=== PATIENT | male | born 1995 | race Caucasian/White ===

== ENCOUNTER 2025-01-10 12:46 | Emergency (ER) | payer MEDICAID, SELFPAY ==
--- NOTE | ~2025-01-10 | XR_ITS ---
EXAMINATION: XR CHEST CLINICAL INFORMATION: chest pain COMPARISON: None available. TECHNIQUE: 2 views of the chest were obtained. FINDINGS: The cardiac, hilar, and mediastinal contours are normal. The lungs are clear bilaterally. There is no pneumothorax or pleural effusion. There is no focal osseous or soft tissue abnormality. XR/XR chest 2V IMPRESSION: Normal chest. Electronically signed by: Marko Murphy MD 01/10/2025 01:52 PM EDT
--- NOTE | 2025-01-10 12:58 | ECG_ITS ---
Test Reason : chest pain Blood Pressure : */* mmHG Vent. Rate : 81 BPM Atrial Rate : 81 BPM P-R Int : 138 ms QRS Dur : 100 ms QT Int : 378 ms P-R-T Axes : 76 -2 37 degrees QTcB Int : 439 ms Normal sinus rhythm Normal ECG No previous ECGs available Referred By: Generic ED Physician Electronically Signed By: LETICIA MONTELONGO MD
[2025-01-10 13:04] VITALS: BP 172/106; PULSE 79; RESP 16; TEMP 36.8; O2SAT 95; BMI 33.7
--- NOTE | 2025-01-10 13:12 | ED.CHESTPAIN ---
HPI - Chest Pain General Chief Complaint: Chest Pain Stated Complaint: chest pain high BP Time Seen by Provider: 01/10/25 14:33 Source: patient Mode of arrival: ambulatory Limitations: no limitations History of Present Illness ED Provider: Bairon Smith PA-C HPI narrative: 29 yo male with history of HTN, noncompliant with medications due to lack of health care insurance presents to the ER from [facility] for evaluation of elevated BP along with intermittent, mild, nonradiating chest pains for the last 1 month. He states he has been off of his BP Meds for the last 3-4 years. He is unsure of what they were. He states he was diagnosed when he was in his teens and it runs in his family. He randomly takes his BP at home and it is usually elevated 150-160s/80-90s. He usually does not have any symptoms. About 1 month ago he had pneumonia and was treated with a z-pack. He has had intermittent aching in his left chest that comes and goes. No SOB. No leg swelling. No vision changes. No headaches. He does not have a PCP. MD complaint: chest pain and other (elevated BP) Onset (ago): week(s) Timing of current episode: episodic Prior episodes: Yes Onset: during rest Pain location: left chest Pain radiation: none Severity: mild Quality: aching Relieving factors: nothing Exacerbating factors: nothing Context: recent illness Treatment prior to arrival: none Risk Factors Coronary artery disease risk factors: hypertension Related Data Previous Rx's ?Medication ?Instructions ?Recorded lisinopril 10 1 tab PO DAILY #30 tabs 01/10/25 mg-hydrochlorothiazide 12.5 mg tablet (Zestoretic) Allergies Allergy/AdvReac Type Severity Reaction Status Date / Time No Known Allergies Allergy Verified 01/10/25 13:05 Review of Systems Review of Systems: Yes all other systems are reviewed and are negative PMFSH Social History Social History Advance Directives: No Advance Directives Information Provided: Yes Physical Exam Vital Signs: Vital Signs: Last Vital Signs Temp 98.2 F 01/10/25 13:04 Pulse 88 01/10/25 16:18 Resp 16 01/10/25 13:04 BP 153/98 H 01/10/25 16:18 Pulse Ox 95 01/10/25 13:04 O2 Del Method Room Air 01/10/25 13:04 BMI result Body Mass Index 33.7 Appearance: Alert. Oriented X3. No acute distress. Head: normocephalic, atraumatic. Eyes: Pupils equal, round and reactive to light. ENT: Pharynx normal. No tonsillar swelling or exudate. Neck: Normal inspection. Neck supple. CVS: Normal heart rate and rhythm. Pulses normal. Respiratory: No respiratory distress. Breath sounds normal. Abdomen: Soft and nontender. +BS x4 Skin: Skin warm and dry. Normal skin color. Normal skin turgor. No rashes. Extremities: No lower extremity edema. No joint swelling. No calf tenderness. Neuro/psych: Oriented X 3. No motor deficit. No sensory deficit. CN II-XII intact. Normal speech and cognition. Course Course Course Narrative: This is a rapid medical exam performed by Blade Feliciano NP: Additional HPI, ROS, PE not included below will be deferred to primary provider. Patient is a 29-year-old male with history of hypertension not currently on antihypertensives due to insurance issues presenting to the emergency department from [facility] for elevated blood pressure readings there. Patient reports mild left-sided chest pain for the past month. Denies headache, blurred vision, shortness of breath. Treated for pneumonia a month ago. Plan: EKG, labs, CXR Medications Administered Discontinued Medications Generic Name Dose Route Start Last Admin Trade Name Freq PRN Reason Stop Dose Admin Lisinopril 10 mg 01/10/25 14:56 01/10/25 15:31 Lisinopril 10 Mg Tablet PO 01/10/25 14:57 10 mg ONCE ONE Administration Protocol Medical Decision Making Medical Decision Making MDM Narrative: 29 yo male with history of untreated HTN presenting from [facility] with high BP and vague left sided chest pains x1 month. BP 170/106 on arrival. chest pain is mild and aching in nature. low suspicion for LISA or PE. no headache or vision changes. labs reassuring along with normal EKG. he thinks he was on lisinopril and HCTZ combo in the past given 10 mg lisinopril here with improvement in BP to 150/90s. he feels better will send home with prescription for BP meds and PCP referrals. importance of outpatient follow up and med compliance discussed and pt expressed understanding. return precautions discussed Differential Diagnosis Differential Diagnoses: The differential diagnosis associated with the presentation includes HTN urgency, HTN emergency, malignant HTN, essential HTN Admission/Observation Consideration of admission/observation: Escalation of care including admission/observation considered Lab Data MDM Lab Attestation statement: I reviewed the patient's lab results. 01/10/25 13:50 01/10/25 13:50 Labs: Lab Results 01/10/25 Range/Units 13:50 WBC 6.4 (4.8-10.8) X10*3/uL RBC 4.94 (4.60-5.80) X10*6/uL Hgb 15.5 (14.0-18.0) g/dl Hct 44.4 (42.0-52.0) % MCV 89.9 (80.0-98.0) fL MCH 31.4 (27.0-33.0) pg MCHC 34.9 (31.0-36.0) g/dl RDW 13.2 (11.0-16.0) % Plt Count 175 (160-400) X10*3/uL MPV 9.7 (9.4-12.4) fL Immature Gran % (Auto) 0.5 H (0.0-0.4) % Neut % (Auto) 58.0 (45-73) % Lymph % (Auto) 30.7 (20-40) % Spencer % (Auto) 6.9 (2-11) % Eos % (Auto) 3.1 (0-4) % Baso % (Auto) 0.8 (0-2) % Lymph # (Auto) 2.0 (1.2-4.9) X10*3/uL Spencer # (Auto) 0.4 (0.1-1.2) X10*3/uL Eos # (Auto) 0.2 (0.0-0.4) X10*3/uL Baso # (Auto) 0.1 (0.0-0.2) X10*3/uL Abs Immat Gran (auto) 0.03 (0.00-0.03) X10*3/uL Absolute Neuts (auto) 3.7 (2.0-8.3) x10*3/uL Absolute Nucleated RBC 0.000 (0.0-0.012) X10*3/uL Nucleated RBC % (auto) 0.0 (0.0-0.2) /100WBC Sodium 140 (135-145) mmol/L Potassium 4.1 (3.3-5.1) mmol/L Chloride 105 (96-108) mmol/L Carbon Dioxide 28 (22-29) mmol/L Anion Gap 11 L (12-20) BUN 18 H (9-16) mg/dL Creatinine 0.91 (0.5-1.4) mg/dL Estim Creat Clear Calc 130.9 Estimated GFR > 60 Random Glucose 89 (60-115) mg/dL Calcium 9.4 (8.4-10.2) mg/dL Total Bilirubin 0.9 (0.0-1.0) mg/dL AST 28 (5-37) U/L ALT 32 (0-40) U/L Alkaline Phosphatase 129 H (39-117) U/L Troponin I High Sens 3.6 (<3.5-35.0) ng/L Total Protein 7.3 (6.5-8.0) g/dL Albumin 4.4 (3.5-5.0) g/dL Independent Interpretation I performed an independent interpretation of an: EKG and Plain X-Ray Interpretation: cxr clear without focal infiltrate or effusion ekg with normla sinus rhythm, HR 81 bpm, no ST segment elevations or depressions Radiology Impression Discussion of test interpretation with radiology: I have reviewed the radiologist's reading. Prescription Management I considered prescription management with: Other (antihypertensive) Social Determinants Patient?s care significantly limited by Social Determinants of Health including: Problems related to primary support group and Other Social Determinant of Health Critical Care Time Critical Care Time Critical Care Time: No Discharge Plan Discharge Clinical Impression: Hypertension Qualifiers: Hypertension type: unspecified Qualified Code(s): I10 - Essential (primary) hypertension Patient Disposition: Home, Self-Care Instructions: Hypertension (ED) Additional Instructions: take the prescribed medication as directed for your blood pressure monitor your blood pressure once per day, a few hours after you take your medication follow up with a primary care doctor to continue to prescribe you this medication - call for an appointment If you develop new or worsening symptoms call 911 or come back to the ER for further evaluation. Prescriptions: New lisinopril-hydrochlorothiazide [Zestoretic] 10-12.5 mg tablet 1 tab PO DAILY Qty: 30 1RF Referrals[facility] [Provider Group] [facility] [place]Provider Group] [facility] [place] [Provider Group] Print Language: Bengali
[2025-01-10 13:55] LABS: MANUAL DIFF FLAG NO
[2025-01-10 14:01] LABS: Basophils Absolute Auto 0.1 X10*3/uL (0.0-0.2); Basophils Percent Auto 0.8 % (0-2); Eosinophils Absolute Auto 0.2 X10*3/uL (0.0-0.4); Eosinophils Percent Auto 3.1 % (0-4); Hematocrit 44.4 % (42.0-52.0); Hemoglobin 15.5 g/dl (14.0-18.0); Imm Gran Abs Auto 0.03 X10*3/uL (0.00-0.03); Imm Gran Pct Auto 0.5 % (0.0-0.4); Lymphocytes Percent Auto 30.7 % (20-40); Mean Corpuscular HGB Conc 34.9 g/dl (31.0-36.0); Mean Corpuscular Hemoglobin 31.4 pg (27.0-33.0); Mean Corpuscular Volume 89.9 fL (80.0-98.0); Mean Platelet Volume 9.7 fL (9.4-12.4); Monocytes Absolute Auto 0.4 X10*3/uL (0.1-1.2); Monocytes Percent Auto 6.9 % (2-11); Neutrophils Absolute Auto 3.7 x10*3/uL (2.0-8.3); Platelet Count 175 X10*3/uL (160-400); Red Blood Count 4.94 X10*6/uL (4.60-5.80); Red Cell Distribution Width 13.2 % (11.0-16.0); White Blood Count 6.4 X10*3/uL (4.8-10.8)
[2025-01-10 14:14] LABS: Anion Gap 11 (12-20); Carbon Dioxide 28 mmol/L (22-29); Chloride 105 mmol/L (96-108); Potassium 4.1 mmol/L (3.3-5.1); Sodium 140 mmol/L (135-145)
[2025-01-10 14:15] LABS: Alanine Aminotransferase 32 U/L (0-40); Albumin Level 4.4 g/dL (3.5-5.0); Alkaline Phosphatase 129 U/L (39-117); Aspartate Amino Transferase 28 U/L (5-37); Bilirubin Total 0.9 mg/dL (0.0-1.0); Blood Urea Nitrogen 18 mg/dL (9-16); Calcium 9.4 mg/dL (8.4-10.2); Creatinine Clr Calc Pharmacy 130.9; Estimated Glomerular Filt Rate > 60; Glucose Random 89 mg/dL (60-115); Total Protein 7.3 g/dL (6.5-8.0)
[2025-01-10 14:18] LABS: Troponin-I High Sensitivity 3.6 ng/L (<3.5-35.0)
[2025-01-10] MEDS: lisinopriL 10 MG TABLET PO (15:31)
[2025-01-10 16:18] VITALS: BP 153/98; PULSE 88
[2025-01-10 17:20] VITALS: BP 151/101; PULSE 89; RESP 12; TEMP 36.2; O2SAT 97
== END 2025-01-10 17:21 | disposition home or self-care (01) ==
PROVIDERS: Registered Nurse Emergency; Emergency Provider Emergency Medicine
DX: I10 Essential (primary) hypertension (principal); R07.9 Chest pain, unspecified
CPT/HCPCS: 36415; 71046; 80053; 84484; 85025; 93005; 99283

== ENCOUNTER → 2025-01-10 12:58 | Outpatient (BNV) | payer MEDICAID, SELFPAY | PROVIDERS: Emergency Provider Emergency Medicine; Visit Provider Internal Medicine Cardiovascular Disease | DX: R07.9 Chest pain, unspecified (principal) | CPT/HCPCS: 93010 ==

== ENCOUNTER → 2025-01-10 13:13 | Outpatient (BNV) | payer MEDICAID, SELFPAY | PROVIDERS: Visit Provider Radiology Diagnostic Radiology | DX: R07.9 Chest pain, unspecified (principal) | CPT/HCPCS: 71046 ==